=== PATIENT | male | born 1945 | race Caucasian/White ===

== ENCOUNTER 2018-07-22 12:02 | Inpatient (IN) | payer MEDICARE, OTHER ==
[~2018-07-22] VITALS: Ht 177.8 cm; Wt 115.2 kg
[~2018-07-22 12:02] MED LIST: ACTOS 30 MG TAB30 M1 PO; ALLOPURINOL 10100 M1 PO; ALLOPURINOL 30300 M1 PO; AMARYL2 MG; AMARYL4 MG PO; ASPIRIN EC325 M1 PO; ASPIRIN325 PO; CIPRO500 M1 PO; CIPROFLOXACIN500 M1 PO; COZAAR 50 MG TA50 M2 PO; FLOMAX PO; FLOMAX0.4 MG PO; GLUCOPHAGE850 MG PO; HYDROCODONE-AP1 EAC6 PO; JANUVIA100 MG; JARDIANCE25 MG PO; KETOCONAZOLE 2200 MG; LIPITOR 20 MG T20 M1 PO; LOPRESSOR25 PO; LORTAB 5 MG/5001 TA1 PO; NORCO 5-325 TA1 EACH PO; PERCOCET 5-3251 EACH PO; PIOGLITAZONE15 MG PO; POTASSIUM CITR10 ME1 PO; POTASSIUM CITR15 MEQ PO; PRANDIN; PROSED-DS TABL1 EACH PO; PROTONIX40 M1 PO; RELAFEN750 MG; TOPROL XL25 MG PO; UROCIT-K10 ME1 PO; ZOFRAN ODT4 MG PO
[2018-07-22 12:10] VITALS: BP 129/72
[2018-07-22 12:30] LABS: ABSOLUTE BASOPHILS 0.1 thou/uL (0.0-0.2); ABSOLUTE EOSINOPHILS 0.2 thou/uL (0.0-0.7); ABSOLUTE LYMPHOCYTES 1.5 thou/uL (0.8-5.3); ABSOLUTE MONOCYTES 0.6 thou/uL (0.0-1.2); ABSOLUTE NEUTROPHILS 4.7 thou/uL (1.6-8.1); EOSINOPHILS 2.6 %; HEMOGLOBIN 16.1 gm/dL (14.0-18.0); LYMPHOCYTES 20.8 %; MCH 25.5 pg (26.0-34.0); MCHC 32.8 g/dL (28.0-37.0); MCV 77.8 fL (80.0-100.0); MONOCYTES 8.3 %; MPV 10.4 fl. (7.2-11.1); NUCLEATED RBCS 0 /100WBC; PLATELET COUNT* 140 thou/uL (150-400); POLYS 67.3 %; RBC 6.31 mil/uL (4.50-6.00); RDW-CV 14.3 % (10.5-14.5)
[2018-07-22 12:41] LABS: APTT 21.3 Seconds (25.0-31.3); PROTIME 10.2 Seconds (9.20-11.50)
[2018-07-22 12:50] LABS: ALBUMIN 3.7 g/dL (3.4-5.0); ALKALINE PHOSPHATASE 124 U/L (46-116); ANION GAP 5 mmol/L (7-16); BUN 22 mg/dL (7-18); CALCIUM 8.9 mg/dL (8.5-10.1); CHLORIDE 104 mmol/L (98-107); CO2 29 mmol/L (21-32); CREATININE 1.5 mg/dL (0.6-1.3); GLUCOSE 291 mg/dL (70-99); NT-PRO BRAIN NAT PEPTIDE 107 pg/mL (<300); POTASSIUM 4.9 mmol/L (3.5-5.1); SGOT 21 U/L (15-37); SGPT 25 U/L (30-65); SODIUM 138 mmol/L (136-145); TOTAL BILIRUBIN 0.6 mg/dL (<0.1-1.0); TOTAL PROTEIN 7.9 g/dL (6.4-8.2); TROPONIN-I LEVEL <0.06 ng/mL (<0.06)
[2018-07-22 14:41] VITALS: BP 136/70
[2018-07-22 15:38] VITALS: BP 127/76
[2018-07-22 20:00] VITALS: BP 135/73
[2018-07-23] VITALS (7 sets, daily range): BP systolic 91–137; BP diastolic 40–68
--- NOTE | 2018-07-23 11:10 | EKG ---
[place] [address] ELECTROCARDIOGRAM REPORT Name: RACHANA HAMMOND Room: [address] ADM IN M.R.#: [id number] Admission: 07/22/18 Attend Phys: Emmanuelle Adams Discharge: Date of : 49 Report #: [id number] THIS REPORT FOR: //name// [facility] ED Test Date: 2018-07-22 Test Time: 12:16:17 Pat Name: RACHANA HAMMOND Department: Room: [facility] Gender: M Special Procedures Tech: FANG : 1945 Requested By: Chriss Raymundo Order Number: [id number] MD: Rachana Alva Measurements Intervals [place] Rate: 64 P: 37 VA: 169 QRS: -32 QRSD: 102 T: 41 QT: 440 QTc: 454 Interpretive Statements Sinus rhythm Left axis deviation Low voltage, precordial leads Borderline repolarization abnormality Compared to ECG 03/31/2016 15:38:18 Low QRS voltage now present Myocardial infarct finding no longer present Electronically Signed On 07-23-2018 11:10:27 CDT by Rachana Alva [email or web address] <ELECTRONICALLY SIGNED> By: Rachana Alva MD, [facility] 07/23/18 1110 1216 1216 Rachana Alva MD, [facility] /EPI
[2018-07-23 11:58] LABS: URINE BILIRUBIN NEGATIVE (Negative); URINE BLOOD NEGATIVE (Negative); URINE CLARITY CLEAR; URINE COLOR YELLOW; URINE GLUCOSE-RANDOM 3+ (Negative); URINE KETONES NEGATIVE (Negative); URINE LEUKOCYTES-REFLEX NEGATIVE (Negative); URINE NITRITE-REFLEX NEGATIVE (Negative); URINE PROTEIN NEGATIVE (Negative); URINE UROBILINOGEN 0.2 E.U./dl (0.2-1.0)
--- NOTE | 2018-07-23 13:15 | 2DMMODE ---
[place] [address] 2 D/M-MODE ECHOCARDIOGRAM Name: RACHANA HAMMOND Room: [address] IN [facility]#: [id number] Admission: 07/22/18 Attend Phys: Raul Elias Discharge: Date of : 49 Date of Service: 07/23/18 1315 Report #: [id number] THIS REPORT FOR: //name// APPROVED REPORT Study performed: 07/23/2018 11:15:10 EXAM: Comprehensive 2D, Doppler, and color-flow Echocardiogram Patient Location: In-Patient Room #: [facility] Status: routine BSA: 2.29 HR: 56 bpm BP: 91/40 mmHg Rhythm: NSR Other Information Study Quality: Good Indications Syncope 2D Dimensions IVSd: 12.04 (7-11mm) LVOT Diam: 21.28 (18-24mm) LVDd: 53.71 mm PWd: 10.90 (7-11mm) Ascending Ao: 29.65 (22-36mm) LVDs: 34.17 (25-40mm) Aortic Root: 32.04 mm Volumes Left Atrial Volume (Systole) LA ESV Index: 21.00 mL/m2 Aortic Valve AoV Peak Joe.: 1.19 m/s AO Peak Gr.: 5.70 mmHg LVOT Max P.50 mmHg AO Mean Gr.: 3.36 mmHg LVOT Mean P.05 mmHg LVOT Max V: 1.06 m/s AO V2 VTI: 25.78 cm LVOT Mean V: 0.65 m/s AKIN (VTI): 3.14 cm2 LVOT V1 VTI: 22.77 cm Mitral Valve E/A Ratio: 0.64 MV Decel. Time: 198.91 ms MV E Max Joe.: 0.66 m/[place] [address] 2 D/M-MODE ECHOCARDIOGRAM Name: RACHANA HAMMOND Room: [address] IN [facility]#: [id number] Admission: 07/22/18 Attend Phys: Raul Elias Discharge: Date of : 49 Date of Service: 07/23/18 1315 Report #: [id number] MV PHT: 57.68 ms MVA (PHT): 3.81 cm2 TDI E/Lateral E': 8.25 E/Medial E': 7.33 Medial E' Joe.: 0.09 m/s Lateral E' Joe.: 0.08 m/s Pulmonary Valve PV Peak Joe.: 0.78 m/s PV Peak Gr.: 2.41 mmHg Left Ventricle The left ventricle is normal size. There is normal LV segmental wall motion. There is normal left ventricular wall thickness. Left ventricular systolic function is normal. The left ventricular ejection fraction is within the normal range. LVEF is 60-65%. Grade I - abnormal relaxation pattern. Right Ventricle The right ventricle is normal size. The right ventricular systolic function is normal. Atria The left atrium size is normal. The right atrium size is normal. Aortic Valve The aortic valve is normal in structure. No aortic regurgitation is present. There is no aortic valvular stenosis. Mitral Valve The mitral valve is normal in structure. Trace mitral regurgitation. No evidence of mitral valve stenosis. Tricuspid Valve The tricuspid valve is normal in structure. Trace tricuspid regurgitation. Unable to assess PA pressure. Pulmonic Valve The pulmonary valve is normal in structure. There is no pulmonic valvular regurgitation. Great Vessels The aortic root is normal in size. IV[place] [address] 2 D/M-MODE ECHOCARDIOGRAM Name: RACHANA HAMMOND Room: [address] IN [facility]#: [id number] Admission: 07/22/18 Attend Phys: Raul Elias Discharge: Date of : 49 Date of Service: 07/23/18 1315 Report #: [id number] Pericardium There is no pericardial effusion. <Conclusion> The left ventricle is normal size. There is normal left ventricular wall thickness. Left ventricular systolic function is normal. The left ventricular ejection fraction is within the normal range. LVEF is 60-65%. Grade I - abnormal relaxation pattern. The right ventricle is normal size. The left atrium size is normal. The aortic valve is normal in structure. The mitral valve is normal in structure. Trace mitral regurgitation. The tricuspid valve is normal in structure. There is no pericardial effusion. There is normal LV segmental wall motion. <ELECTRONICALLY SIGNED> By: Rachana Alva MD, FACC 07/23/18 1315 14 14 Rachana Alva MD, FACC /INF
== END 2018-07-23 16:24 | disposition home or self-care (01) | DRG 68 ==
LOC: M.ERS 12:02 → M.2W 13:39 → M.TBA-ER 13:39 → M.2W 15:37
PROVIDERS: Family Medicine; ADMIT Internal Medicine
DX: I65.23 Occlusion and stenosis of bilateral carotid arteries (principal); I10 Essential (primary) hypertension; E11.42 Type 2 diabetes mellitus with diabetic polyneuropathy; I34.0 Nonrheumatic mitral (valve) insufficiency; Z87.442 Personal history of urinary calculi; Z98.52 Vasectomy status; Z87.891 Personal history of nicotine dependence; Z79.82 Long term (current) use of aspirin; Z79.899 Other long term (current) drug therapy; N18.3 Chronic kidney disease, stage 3 (moderate)

== ENCOUNTER → 2020-02-27 | Outpatient (CLI) | payer MEDICARE, OTHER | LOC: M.ULTRA 15:30 | PROVIDERS: ATTEND Nurse Practitioner Family | DX: I80.8 Phlebitis and thrombophlebitis of other sites (principal) ==

== ENCOUNTER → 2020-09-29 | Outpatient (CLI) | payer MEDICARE, OTHER | LOC: M.RAD 12:07 | PROVIDERS: ATTEND Nurse Practitioner Family | DX: M19.031 Primary osteoarthritis, right wrist (principal); M79.641 Pain in right hand; M25.531 Pain in right wrist ==